=== PATIENT | male | born 1990 | race Caucasian/White ===

== ENCOUNTER 2016-09-22 12:26 | Emergency (ER) | payer OTHER ==
[~2016-09-22] VITALS: Ht 172.7 cm; Wt 90.7 kg
[2016-09-22] MEDS ORDERED: BUPR100T3 PO (12:34)
[2016-09-22] MEDS ORDERED: HYDR25T PO (12:34)
[2016-09-22] MEDS ORDERED: ZOLO100T PO (12:34)
[2016-09-22] MEDS ORDERED: ALBUTEROL 90 MCG/ACT 8GM HFA INHALER INH ONE (13:00)
--- NOTE | 2016-09-22 13:41 | REP ---
Clinical: Cough. Technique: PA and lateral. Comparison: None. Findings: Mediastinum and cardiac silhouette are within normal limits. Basilar atelectasis cannot be excluded. No discrete focal consolidation, effusion, or pneumothorax. Skeletal structures intact. Impression: Cannot exclude trace basilar atelectasis. Signed by Ron Perez MD 09/22/2016 01:33 P
[2016-09-22] MEDS ORDERED: ZITHTAB PO (13:43)
[2016-09-22] MEDS ORDERED: GUAISYP4 PO (13:43)
[2016-09-22 13:49] VITALS: BP 122/78
== END 2016-09-22 13:50 | disposition home or self-care (01) ==
LOC: M ED 12:59
DX: J20.9 Acute bronchitis, unspecified (principal); Z79.899 Other long term (current) drug therapy

== ENCOUNTER 2017-01-09 19:23 | Emergency (ER) | payer OTHER ==
[~2017-01-09] VITALS: Ht 167.6 cm; Wt 90.9 kg
[~2017-01-09 19:23] MED LIST: BUPR100T3 PO; GUAISYP4 PO; HYDR-3363 PO; ZITHTAB PO; ZOLO100T PO
[2017-01-09] MEDS ORDERED: ONDANSETRON 4MG/2ML VIAL (J2405) IV ONE (20:15)
[2017-01-09] MEDS ORDERED: MORPHINE 4 MG/ML 1ML SYRINGE IV PRN (20:15)
[2017-01-09 20:21] LABS: BASO % 0.2 % (0.0-1.0); EOS # 0.2 K/mm3 (0.0-0.50); EOS % 1.1 % (0.0-3.0); LARGE UNSTAINED CELL # 0.1 K/mm3 (0.0-0.4); LARGE UNSTAINED CELL % 0.8 % (0.0-4.0); LYMPH # 0.8 K/mm3 (1.5-6.5); LYMPH % 4.9 % (24.0-44.0); MEAN CORPUSCULAR HEMOGLOBIN 31.1 pg (27.0-33.0); MEAN CORPUSCULAR VOLUME 91.5 fl (80.0-96.0); MONO # 0.5 K/mm3 (0.0-0.8); MONO % 3.3 % (0.0-5.0); NEUTROPHILS % 89.7 % (36.0-66.0); PLATELET COUNT, AUTOMATED 211 k/mm3 (150-450); RED CELL DISTRIBUTION WIDTH 12.6 % (11.5-14.5); WHITE BLOOD COUNT 14.5 K/mm3 (4.0-10.0)
[2017-01-09 20:33] LABS: ANION GAP 10 MEQ/L (8-16); BLOOD UREA NITROGEN 12 MG/DL (7-18); CALCIUM LEVEL 9.5 MG/DL (8.5-10.1); CARBON DIOXIDE LEVEL 24 MEQ/L (21-32); CHLORIDE LEVEL 107 MEQ/L (98-107); CREATININE FOR GFR 1.05 MG/DL (0.70-1.30); GLOMERULAR FILTRATION RATE > 60.0 (>60); GLUCOSE, FASTING 123 MG/DL (70-105); POTASSIUM SERUM 3.7 MEQ/L (3.5-5.1); SODIUM LEVEL 141 MEQ/L (136-145)
[2017-01-09] MEDS ORDERED: ISOVUE-370 76% 100ML VIAL (Q9967) As Ordered ONE (21:04)
--- NOTE | 2017-01-09 21:36 | REP ---
Clinical: Chest pain and tachycardia. Technique: Axial contrast enhanced images from the thoracic inlet to the upper abdomen using 100 ml Isovue 370 intravenous contrast material with multiplanar re-formations. Findings: Satisfactory enhancement of the pulmonary vasculature is achieved, but significant respiratory motion artifact somewhat limits evaluation. No obvious filling defects are identified to suggest pulmonary embolus. Further evaluation of the mediastinum demonstrates normal thoracic aorta, heart and pericardium. Lung truong cannot exclude trace right middle lobe or bibasilar atelectasis with several alveolar opacities which may reflect associated bronchitis. No discrete focal consolidation. No effusion or pneumothorax. Tracheobronchial tree is patent. No axillary, hilar or mediastinal adenopathy. Impression: No evidence for pulmonary embolus. Cannot exclude a mild right middle lobe or basilar atelectasis and bronchitis. Signed by Ron Perez MD 01/09/2017 09:27 P
[2017-01-09] MEDS ORDERED: KETOROLAC 30 MG/ML VIAL (J1885) IV ONE (23:45)
[2017-01-10] MEDS ORDERED: NAPR500T3 PO (00:39)
[2017-01-10 01:10] VITALS: BP 103/60
--- NOTE | 2017-01-10 05:55 | ECGEPIP ---
Stationary ECG Study [facility] - ED Test Date: 2017-01-09 Pat Name: GORDY MURRELL Department: Room: - Gender: M Bilingual Receptionist: mara : [id number] Requested By: NAE Arora Order Number: [id number] Reading MD: Moreno Lew Measurements Intervals [place] Rate: 115 P: 35 [place]: 152 QRS: 12 QRSD: 96 T: 35 QT: 301 QTc: 417 Interpretive Statements SINUS TACHYCARDIA MINIMAL VOLTAGE CRITERIA FOR LVH, CONSIDER NORMAL VARIANT NONSPECIFIC T-WAVE ABNORMALITY NO PRIORS Electronically Signed On 01-10-2017 5:54:49 EDT by Moreno Lew
--- NOTE | 2017-01-10 11:12 | REP ---
Clinical: Chest pain and tachycardia. Technique: PA and lateral. Comparison: 09/22/2016. Findings: Mediastinum and cardiac silhouette are stable and within normal limits. The lung truong demonstrate subtle vague perihilar and basilar air space opacities suggesting bronchitis. No focal consolidation, effusion, or pneumothorax. Skeletal structures intact. Impression: Suspected acute bronchitis/early pneumonia Signed by Ron Perez MD 01/10/2017 08:58 A
== END 2017-01-10 01:10 | disposition home or self-care (01) ==
LOC: M ED 19:23
DX: R07.89 Other chest pain (principal); F33.9 Major depressive disorder, recurrent, unspecified; Z79.899 Other long term (current) drug therapy
CPT/HCPCS: 71020; 71275; 80048; 82550; 82553; 84484; 85025; 86140; 93005; 93041; 94760; 96374; 96375; 99285; J1885; J2405; Q9967

== ENCOUNTER → 2020-04-10 | Outpatient (CLI) | payer SELFPAY ==
[~2020-04-10] MED LIST changes: +NAPR-885 PO
== END ==
LOC: M LABSMTC 15:25
PROVIDERS: ATTEND Pediatrics
DX: Z20.828 Contact with and (suspected) exposure to other viral communicable diseases (principal)

== ENCOUNTER 2021-04-29 18:33 | Emergency (ER) | payer OTHER, SELFPAY ==
[~2021-04-29] VITALS: Ht 172.7 cm; Wt 90.9 kg
[2021-04-29] MEDS ORDERED: KETOROLAC 30 MG/ML 1ML VIAL IM ONE (21:20)
[2021-04-29] MEDS ORDERED: LIDOCAINE 5% (LIDODERM) PATCH TD ONE (21:20)
[2021-04-29] MEDS ORDERED: diazePAM 5MG TABLET PO ONE (21:20)
[2021-04-29] MEDS ORDERED: methocarbamoL 750 MG TAB PO ONE (22:50)
[2021-04-29] MEDS ORDERED: METH-1165 PO (23:55)
[2021-04-29] MEDS ORDERED: NAPR1TAB86 PO (23:55)
[2021-04-30] VITALS: BP 139/80
[2021-04-30] MEDS ORDERED: **NOTE PATIENT COMMENT** MISC XX SCH (21:00)
== END 2021-04-30 00:08 | disposition home or self-care (01) ==
LOC: M ED 18:33
DX: S39.012A Strain of muscle, fascia and tendon of lower back, initial encounter (principal); X58.XXXA Exposure to other specified factors, initial encounter; Y92.89 Other specified places as the place of occurrence of the external cause; F33.9 Major depressive disorder, recurrent, unspecified; F41.9 Anxiety disorder, unspecified; F43.10 Post-traumatic stress disorder, unspecified; Z79.899 Other long term (current) drug therapy
CPT/HCPCS: 96372; 99283; J1885

== ENCOUNTER → 2023-10-02 | Outpatient (CLI) | payer OTHER ==
[~2023-10-02] MED LIST changes: +BUPR-70 PO; -BUPR100T3 PO; +METH-1165 PO; +NAPR1TAB86 PO
== END ==
LOC: M RAD 10:14
PROVIDERS: ATTEND Physician Assistant
DX: L72.0 Epidermal cyst (principal)